=== PATIENT | male | born 1940 | race Caucasian/White ===

== ENCOUNTER 2017-06-03 07:26 | Outpatient (CLI) | payer MEDICARE ==
[~2017-06-03] VITALS: Ht 177.8 cm; Wt 100.0 kg
--- NOTE | ~2017-06-03 | HEMODYNAMI ---
PATIENT:ETHAN GRAFF MEDICAL RECORD: [id number] : 40 LOCATION:D.CAT ADMISSION DATE: 06/03/17 Generatedon:06/03/201710:38 Patient name: ETHAN GRAFF Patient #: [id number] : 1940 Date of study: 06/03/2017 Page: Of Hemodynamic Procedure Report Patient Data Patient Demographics Procedure consent was obtained First Name: ETHAN Gender: Female Last Name: PRERNA : 1940 Patient #: [id number] Age: 77 year(s) Race: SSN: [id number] Additional ID: [id number] Contact details [address]: [address] [place] [address] State: [place] City: [place] Zip code: [address] Past Medical History Allergies Allergen Reaction Date Comments Reported Other allergy 06/03/2017 milk Admission Admission Data Admission Date: 06/03/2017 Admission Time: 7:26 Arrival Date: 06/02/2017 Arrival Time: 1:20 Admit Source: Other Insurance Payor: Medicare Height (in.): 70 BSA: 2.19 (m2) Height (cm.): 177.8 BMI: 32.28 (kg/m2) Weight (lbs.): 225 Weight (kg.): 102.06 Lab Results Lab Result Date: 06/03/2017 Lab Result Time: 0:00 Biochemistry Name Units Result Min Max BUN mg/dl 18 --(---*)-- 7 18 Creatinine mg/dl 1 --(--*-)-- 0.6 1.3 CBC Name Units Result Min Max Hemoglobin g/dl 14.1 --(*---)-- 13.5 17.5 Procedure Procedure Types Cath Procedure Diagnostic Procedure [facility] w/Coronaries PCI Procedure Coronary Stent Initial Miscellaneous Procedures Moderate Sedation up to 15 minutes Procedure Description Procedure Date Procedure Date: 06/03/2017 Procedure Start Time: 10:18 Procedure End Time: 10:36 Procedure Staff Name Function Flex Miramontes MD Performing Physician Shahrzad Kauffman RT Scrub Ede Limon RN Nurse Laura Lam RT Monitor Indication Angina Procedure Data Cath Procedure Fluoroscopy Diagnostic fluoroscopy Total fluoroscopy Time: 6.2 time: 6.2 min min Diagnostic fluoroscopy Total fluoroscopy dose: dose: 1195 mGy 1195 mGy Contrast Material Contrast Material Type Amount (ml) Isovue 300 119 Entry Location Entry Primary Successful Side Size Upsize Upsize Entry Closure Watson ccessful Closure Location (Fr) 1 (Fr) 2 (Fr) Remarks Device Remarks Radial Right 6 Fr Mechanical artery Short Compression Estimated blood loss: 5 ml Diagnostic catheters Device Type Used For End Catheter Placement Diagnostic Terumo Multi-vessel Optitorque 5Fr Appleton 4.5 Angiography catheter Procedure Complications No complications Procedure Medications Medication Administration Route Dosage Oxygen NC 2 l/min Lidocaine 2% added to field 20 Heparin Flush Bag added to field 2 bags (1000units/500ml NS) 0.9% NaCl I.V. 100 ml/hr Versed I.V. 1 mg Fentanyl I.V. 50 mcg Radial Cocktail I.A. 1 syringe (Verapomil 2mg/Nitro 400mcg/Heparin 1500units) Versed I.V. 1 mg Fentanyl I.V. 50 mcg Heparin Bolus I.V. 4000 units Hemodynamics Rest BSA: 2.19 (m2) HGB: 14.1 (g/dl) O2 Consumption: Estimated: 190.75 (ml/min) O2 Co nsumption indexed: Estimated:87.1 (ml/min/m) Heart Rate: 61 (bpm) Snapshots Pre Cath Intra NCS Post Cath Vital Signs Time Heart Resp SPO2 NIBP (mmHg) Rhythm Pain Sedation Rate (ipm) (%) Status Level (bpm) 10:02:35 61 16 96 134/76(103) NSR 0 (11) 10(A) , No pain 10:06:51 60 14 95 127/75(101) NSR 0 (11) 10(A) , No pain 10:11:07 62 15 94 121/70(98) NSR 0 (11) 10(A) , No pain 10:15:23 59 16 94 128/71(98) NSR 0 (11) 10(A) , No pain 10:19:41 59 15 94 126/72(94) NSR 0 (11) 9(A) , No pain 10:23:59 68 15 94 121/62(99) NSR 0 (11) 9(A) , No pain 10:28:15 69 15 94 117/66(93) NSR 0 (11) 9(A) , No pain 10:32:31 67 16 94 126/70(102) NSR 0 (11) 10(A) , No pain 10:36:49 64 11 95 133/74(105) NSR 0 (11) 10(A) , No pain Medications Time Medication Route Dose Verified Delivered Reason Note s Effectiveness by by 9:56:11 Oxygen NC 2 l/min Flex Buffie used for Kulwinder Limon RN procedure 9:56:19 Lidocaine 2% added 20ml Flexevans Mccord for local to vial Kulwinder Miramontes MD anesthetic field 9:56:25 Heparin Flush added 2 bags Flex Mccord used for Bag to Kulwinder Miramontes MD procedure (1000units/500ml field NS) 9:56:34 0.9% NaCl I.V. 100 Flex Mera Per physician ml/hr Kulwinder Limon RN 10:16:46 Versed I.V. 1 mg Flex Mera for sedation Kulwinder Limon RN 10:16:52 Fentanyl I.V. 50 mcg Flex Mera for sedation Kulwinder Limon RN 10:21:27 Radial Cocktail I.A. 1 Flex Mccord for (Verapomil syringe Kulwinder Miramontes MD vasodilation 2mg/Nitro 400mcg/Heparin 1500units) 10:21:32 Versed I.V. 1 mg Flex Mera for sedation Kulwinder Limon RN 10:21:36 Fentanyl I.V. 50 mcg Flex Mera for sedation Kulwinder Limon RN 10:24:44 Heparin Bolus I.V. 4000 Flex Mera for veri fied units Kulwinder Limon RN anticoagulation with dr miramontes Procedure Log Time Note 9:30:13 Laura Lam RT(R) sent for patient. Start room use. 9:36:49 Informed consent obtained and on chart 9:36:57 Diagnostic Cath Status : Elective 9:37:21 Indication : Angina 9:37:52 Patient Height : 177.8 cm 9:37:55 Patient Weight : 102.06 kg 9:37:55 Admit Source: Other 9:37:59 Arrival Date: 06/02/2017 1:20:00 AM 9:38:14 Insurance Payor : Medicare 9:39:14 Patient allergic to Other allergymilk 9:41:09 Lab Result : Hemoglobin 14.1 g/dl 9:: Lab Result : BUN 18 mg/dl 9::09 Lab Result : Creatinine 1 mg/dl 9:42:20 Time tracking: Regular hours 9:42:24 Plan of Care:Hemodynamics will remain stable., Cardiac rhythm will remain stable., Comfort level will be maintained., Respiratory function will remain adequate., Patient/ family verbilizes understanding of procedure., Procedure tolerated without complication., Recovers from procedure without complications.. 9:47:33 Patient received from Pre/Post Procedure Room to [facility] 2 Alert and oriented. Tansferred to table in Supine position. 9:47:34 Warm blankets applied, and rebecca hugger turned on for patient comfort. 9:47:35 Correct patient and procedure confirmed by team. 9:47:36 ECG and BP/O2 sat monitors applied to patient. 9:56:11 Oxygen 2 l/min NC was administered by Ede Limon RN; used for procedure; 9:56:19 Lidocaine 2% 20ml vial added to field was administered by Flex Miramontes MD; for local anesthetic; 9:56:25 Heparin Flush Bag (1000units/500ml NS) 2 bags added to field was administered by Flex Miramontes MD; used for procedure; 9:56:34 0.9% NaCl 100 ml/hr I.V. was administered by Ede Limon RN; Per physician; 10:01:23 Vital chart was started 10:01:25 Baseline sample Acquired. 10:01:30 Rhythm: sinus rhythm 10:01:32 Full Disclosure recording started 10:01:41 H&P Date Dictated: 06/02/2017 Within 30 days and on chart., H&P Addendum completed by physician on day of procedure. (MUST COMPLETE FOR ALL OUTPATIENTS). 10:01:42 Pre-procedure instructions explained to patient. 10:01:43 Pre-op teaching completed and patient verbalized understanding. 10:01:44 Family in waiting room. 10:01:45 Patient NPO since Midnight. 10:01:54 Is the patient allergic to Iodine/contrast media? No. 10:01:55 Was the patient premedicated? No 10:01:56 Is patient on blood thinner?Yes 10:01:59 ACC The patient was administered the following blood thiners within the last 24 hours: ACCPlavix 10:02:03 Patient diabetic? Yes. 10:02:07 If diabetic: On Metformin? Yes 10:02:11 If on Metformin: Last Dose? 06/03/2017 10:02:15 Previous problem with sedation/anesthesia? No ? 10:02:18 Snore? Yes 10:02:19 Sleep apnea? No 10:02:20 Deviated septum? No 10:02:21 Opens mouth fully? Yes 10:02:22 Sticks out tongue? Yes 10:02:23 Airway obstruction? No ? 10:02:27 Dentures? No ? 10:02:31 Pre procedure: right dorsailis pedis pulse 1+ Palpable, but thready & weak; easily obliterated 10:02:34 Modified Avelino's test Radial < 7 seconds 10:02:36 Patient pain scale 0/10 ?. 10:02:47 IV patent on arrival in left hand with 0.9% NaCl at [facility]. 10:03:03 Lab results completed and on chart. 10:03:11 Right Radial & Right Groin area was prepped with chlora-prep and draped in sterile fashion 10:03:12 Alarms reviewed by R. N. 10:03:13 Sharps counted by scrub and verified by R.N. 10:03:36 Physician paged 10:11:21 Use device set Radial Dx 10:11:22 Acist Syringe opened to sterile field. 10:11:22 Medline Cath Pack opened to sterile field. 10:11:22 Bag Decanter opened to sterile field. 10:11:23 Terumo 6Fr Slender Glidesheath opened to sterile field. 10:11:23 St Amaury 260cm J .035 wire opened to sterile field. 10:11:23 Acist Hand Control opened to sterile field. 10:11:24 Acist Manifold opened to sterile field. 10:11:24 Tegaderm 4 x 4 opened to sterile field. 10:11:25 MBrace Wrist Support opened to sterile field. 10:16:05 Physician arrived 10:16:06 --------ALL STOP TIME OUT------ 10:16:07 Final Timeout: patient, procedure, and site verified with staff and physician. All members of the team are in agreement. 10:16:09 Right Radial & Right Groin site verified by team. 10:16:12 Physical assessment completed. ASA score P 2 - A patient with mild systemic disease as per Flex Miramontes MD. 10:16:15 Sedation plan: IV Moderate Sedation Versed, Fentanyl 10:16:46 Versed 1 mg I.V. was administered by Ede Limon RN; for sedation; 10:16:52 Fentanyl 50 mcg I.V. was administered by Ede Limon RN; for sedation; 10:18:10 Procedure started. 10:18:12 Zero performed for pressure channel P1 10:18:18 Zero performed for pressure channel P1 10:18:31 Local anesthetic to right radial artery with Lidocaine 2% by Flex Miramontes MD.INITIAL ACCESS ONLY 10:18:40 A 6 Fr Short sheath was inserted into the Right Radial artery 10:21:17 A Diagnostic [employer] Optitorque 5Fr Appleton 4.5 catheter was advanced over the wire and used for Multi-vessel Angiography. 10:21:27 Radial Cocktail (Verapomil 2mg/Nitro 400mcg/Heparin 1500units) 1 syringe I.A. was administered by Flex Miramontes MD; for vasodilation; 10:21:32 Versed 1 mg I.V. was administered by Ede Limon RN; for sedation; 10:21:36 Fentanyl 50 mcg I.V. was administered by Ede Limon RN; for sedation; 10:22:03 EF : 50 % 10:22:08 LV gram done using LEE 10:22:10 Injector settings: Ml/sec: 5, Volume: 15, 10:22:18 LCA angiography performed. 10::28 Injector settings: Ml/sec: 3, Volume: 6, 10:23:25 Merit BasixCompak Inflation Kit opened to sterile field. 10:23:25 Rivera Whisper J 300cm 0.014 guide wire opened to sterile field. 10:24:03 RCA angiography performed. 10::44 Heparin Bolus 4000 units I.V. was administered by Ede Limon RN; for anticoagulation; verified with dr miramontes 10::44 Injector settings: Ml/sec: 3, Volume: 6, 10:24:57 Catheter removed. 10:25:03 Proceeding to intervention. 10:25:22 Cordis 6FR XBLAD 4.0 guide catheter opened to sterile field. 10:25:30 6 Fr xblad 4 guide catheter was inserted over the wire 10:26:35 Guide Catheter removed. unable to cannulate vessel. 10:26:49 Cordis 6FR XBLAD 3.5 guide catheter opened to sterile field. 10:27:01 6 Fr xblad 3.5 guide catheter was inserted over the wire 10:27:05 whisper wire advanced. 10:30:10 Inflation number: 1 A Mozec Rx 2.5 x 41 balloon was prepped and advanced across the Mid LAD, then inflated to 13 JOHANNA for 0:10 (min:sec). 10:30:24 Inflation number: 2 The Mozec Rx 2.5 x 41 balloon was reinflated across the Mid LAD, to 17 JOHANNA for 0:10 (min:sec). 10:31:17 Balloon removed over the wire. 10:32:40 Inflation Number: 3 A Homeworth OTW 2.5 x 38 stent was prepped and advanced across the Mid LAD. The stent was deployed at 11 JOHANNA for 0:10 (min:sec). 10:32:48 Inflation number: 4 The stent balloon was then re-inflated across the Mid LAD to 17 JOHANNA for 0:10 (min:sec). 10:33:33 Stent catheter was removed intact over wire. 10:33:38 Wire removed. 10:33:39 Guide catheter removed. 10:34:27 Terumo TR Band Standard opened to sterile field. 10:34:38 Sheath removed intact; hemostasis achieved with Mechanical Compression to the Right Radial artery. 10:34:40 Procedure ended.(Physican Out) 10:34:55 Fluoroscopy time 06.20 minutes. 10:35:08 Fluoroscopy dose: 1195 mGy 10:35:08 Flurop Dose total: 1195 10:35:13 Contrast amount:Isovue 300 119ml. 10:35:20 Sharps counted by scrub and verified by R.N. 10:35:57 TR band inflated with 10cc of air. 10:35:59 Insertion/operative site no bleeding no hematoma. 10:36:03 Post right radial artery:stable 10:36:05 Post Procedure Pulses reassessed and unchanged 10:36:07 Post procedure rhythm: unchanged. 10:36:09 Estimated blood loss: 5 ml 10:36:10 Post procedure instruction explained to patient.Patient verbalizes understanding. 10:36:11 Patient needs reinforcement of post procedure teaching. 10:36:27 Procedure type changed to Cath procedure, Diagnostic procedure, LHC, LHC w/Coronaries, PCI procedure, Coronary Stent Initial, Miscellaneous Procedures, Moderate Sedation up to 15 minutes 10:36:28 Procedure and supply charges have been captured, reviewed, submitted and are correct. 10:36:32 Procedure Complication : No complications 10:36:35 Vital chart was stopped 10:36:35 See physician's report for complete and final results. 10:36:37 Report given to Pre/Post Procedure Room. 10:36:40 Patient transfered to Pre/Post Procedure Room with Stretcher. 10:36:41 Procedure ended. 10:36:41 Full Disclosure recording stopped 10:36:48 ACC-PCI Only Patient was given prescriptions, or instructed by Flex Miramontes MD to start/continue the following medications upon discharge: Plavix 10:36:50 End room use (Document Last) Intervention Summary Intervention Notes Time ActionType Lesion and Equipment Action# Pressure Duration Attributes Used 10:30:10 Inflate Mid LAD Mozec Rx 1 13 00:10 balloon 2.5 x 41 balloon 10:30:24 Reinflate Mid LAD Mozec Rx 2 17 00:10 balloon 2.5 x 41 balloon 10:32:40 [address] stent Mid LAD Homeworth OTW 3 11 00:10 2.5 x 38 stent 10:32:48 Reinflate Mid LAD Homeworth OTW 4 17 00:10 stent 2.5 x 38 balloon stent Device Usage Item Name Manufacture Quantity Catalog Hospital Part Current Minimal Lot# / Number Charge Number Stock Stock Serial# Code [facility] 1 [id number] 253522 642781 219413 20 Apps[employer]Pro [employer] Inc Medline Cardinal 1 [id number] 553070 36303 208011 5 Cath Pack Health Bag Microtek 1 2001S 563318 89224 768567 5 [employer] Terumo 6Fr Terumo 1 [id number] 115626 042000 126964 [address] Ama[address] St Amaury 1 372522 368500 882511 170503 30 260cm J .035 wire Acist Hand Acist 1 17198 669473 090041 839332 5 Control Medical Systems Inc Acist Acist 1 30203 579943 987612 242878 5 Manifold Medical Systems Inc Tegaderm 4 3M 1 1626W 455170 099421 740837 5 x 4 MBrace Advanced 1 140-0250-00 371054 81826 444297 5 Wrist Vascular Support Dynamics Diagnostic Terumo 1 40-5782 211976 480802 778852 5 Terumo Optitorque 5Fr Appleton 4.5 catheter Merit Merit 1 [id number] 218272 921366 209700 15 BasixCompak Medical Inflation Kit Rivera Rivera 1 [id number] 468806 531134 414675 5 Whisper J Vascular 300cm 0.014 guide wire Cordis 6FR Cardinal 1 [id number] 050872 144609 381072 3 XBLAD 4.0 Health guide catheter Cordis 6FR Cardinal 1 [id number] 535180 681213 300628 10 XBLAD 3.5 Health guide catheter Mozec Rx Cardinal 1 [id number] 428090 06560 253986 5 UMOA42 2.5 x 41 Health balloon Milan OTW Medtronic 1 [id number] 666278 97460 760142 5 [id number] 2.5 x 38 stent Terumo TR Terumo 1 [id number] 790784 899315 064470 40 Band Standard Signature Audit [place] Stage Time Signature Unsigned Intra-Procedure 06/03/2017 Shahrzad Kauffman 10:38:26 AM RT(R) Signatures Monitor : Laura Lam Signature : RT Date : Time : [facility] [address] [place] [address]
[2017-06-03] MEDS ORDERED: HUMALOG 30100 UNITS/ SC (07:52)
[2017-06-03] MEDS ORDERED: NORVASC10 MG PO (07:52)
[2017-06-03] MEDS ORDERED: TOUJEO SOL300 UNIT/1 (07:53)
[2017-06-03] MEDS ORDERED: GLUCOPHAGE1000 MG PO (07:53)
[2017-06-03] MEDS ORDERED: FLOMAX0.4 MG PO (07:54)
[2017-06-03] MEDS ORDERED: PROTONIX20 MG PO (07:54)
[2017-06-03] MEDS ORDERED: ZANTAC150 MG (07:54)
[2017-06-03] MEDS ORDERED: LOPID600 MG PO (07:55)
[2017-06-03] MEDS ORDERED: NITROSTAT0.4 MG SL (07:56)
[2017-06-03] MEDS ORDERED: GLUCOTROL 5 MG T5 MG PO (07:56)
[2017-06-03] MEDS ORDERED: PLAVIX75 MG PO (07:57)
[2017-06-03] MEDS ORDERED: DIOVAN HCT 160/1 TA1 PO (07:57)
[2017-06-03] MEDS ORDERED: METOPROLOL TART50 MG PO (07:57)
[2017-06-03] MEDS ORDERED: BAYER CHEWABLE81 MG PO (07:58)
[2017-06-03] MEDS ORDERED: CLOTRIM ANTIFUN15 GM TOPICAL (07:58)
[2017-06-03] MEDS ORDERED: GAVISCON E1 TAB.CHEW PO (07:58)
[2017-06-03 08:00] VITALS: BP 157/75; Ht 177.8 cm; Wt 100.0 kg
[2017-06-03 08:09] LABS: EOSINOPHILS 4.1 % (0-7); HEMATOCRIT 40.9 % (36.0-48.0); HEMOGLOBIN 14.1 g/dL (12-16); IMMATURE GRANULOCYTES 0.2 % (0-5); LYMPHOCYTES 27.5 % (15-50); MCH 30.7 pg (26.0-34.0); MCHC 34.5 g/dL (31.0-37.0); MCV 89.1 fL (80.0-100.0); MONOCYTES 7.9 % (2-11); NEUTROPHILS 59.3 % (40-80); PLATELET COUNT 200 10x3/uL (130-400); RBC 4.59 10x6/uL (4.00-5.40); RDW 13.4 % (11.5-14.5); WBC 5.8 10x3/uL (4.8-10.8)
[2017-06-03 08:14] LABS: ANION GAP 11.6 mmol/L (8-16); CALCIUM 9.1 mg/dL (8.5-10.1); CARBON DIOXIDE 28.6 mmol/L (21.0-32.0); POTASSIUM - SERUM 4.2 mmol/L (3.5-5.1)
--- NOTE | 2017-06-03 11:00 | NUR ---
ROOM AIR, NO RESP DISTRESS NOTED. RIGHT WRIST TR BAND CDI, NO BLEEDING OR HEMATOMA NOTED. NO C/O NAUSEA OR CHEST PAIN. VSS. SANDWICH TRAY AND DRINK GIVEN. AT BEDSIDE, CALL LIGHT WITHIN REACH.
--- NOTE | 2017-06-03 11:30 | NUR ---
RESTING QUIETLY IN BED. RIGHT WRIST TR BAND CDI, NO BLEEDING OR HEMATOMA NOTED. NO C/O NAUSEA OR CHEST PAIN. VSS. ROOM AIR, NO RESP DISTRESS. AT BEDSIDE, WILL CONTINUE TO MONITOR.
--- NOTE | 2017-06-03 11:45 | NUR ---
ROOM AIR, NO RESP DISTRESS NOTED. RIGHT WRIST TR BAND CDI, NO BLEEDING OR HEMATOMA NOTED. DENIES ANY NEEDS AT THIS TIME. VSS. CALL LIGHT WITHIN REACH.
--- NOTE | 2017-06-03 12:15 | NUR ---
RESTING QUIETLY. ROOM AIR, NO RESP DISTRESS. RIGHT WRIST TR BAND CDI, NO BLEEDING NOTED. VSS. NO C/O PAIN. WILL CONTINUE TO MONITOR.
[2017-06-03 12:34] LABS: CREATINE KINASE 90 UL (21-215); TROPONIN-I 0.018 ng/mL (0.000-0.060)
--- NOTE | 2017-06-03 12:45 | NUR ---
RESTING QUIETLY ON ROOM AIR, NO RESP DISTRESS. VSS. RIGHT WRIST TR BAND CDI, NO BLEEDING NOTED. WILL CONTINUE TO MONITOR.
--- NOTE | 2017-06-03 13:21 | NUR ---
2CC OF AIR REMOVED FROM TR BAND, NO BLEEDING NOTED.
--- NOTE | 2017-06-03 13:39 | NUR ---
3CC OF AIR REMOVED FROM TR BAND, NO BLEEDING NOTED.
--- NOTE | 2017-06-03 13:52 | NUR ---
2CC AIR REMOVED FROM R WRIST TR BAND, NO BLEEDING OR HEMATOMA. WILL MONITOR CLOSELY.
--- NOTE | 2017-06-03 14:20 | NUR ---
LEFT HAND PIV D/C'D WITH CATHETER INTACT, BAND AID TO SITE. UP TO BEDSIDE TO GET DRESSED.
--- NOTE | 2017-06-03 14:30 | NUR ---
REMAINING AIR REMOVED FROM TR BAND AND DRESSING PLACED TO SITE. DISCHARGE INSTRUCTIONS GIVEN, VERBALIZED UNDERSTANDING.
--- NOTE | 2017-06-03 14:50 | NUR ---
TAKEN OUT VIA WHEELCHAIR BY CATH FORECLOSURE CLERK. LEFT FACILITY WITH FAMILY MEMBER AND ALL PERSONAL BELONGINGS.
--- NOTE | 2017-06-05 13:34 | OP ---
PATIENT NAME: ETHAN GRAFF MEDICAL RECORD: [id number] :40 LOCATION:D.CAT ADMISSION DATE: SURGEON: SAKSHI VELASCO MD DATE OF OPERATION: 06/03/2017 PROCEDURES: 1. PTCA stent LAD. 2. Left heart catheterization. 3. Selective coronary angiography. 4. Left ventriculogram. INDICATION: Angina and coronary artery disease. PROCEDURE IN DETAIL: After informed consent was obtained and after detailed explanation of risks, benefits as well as alternative therapies, the patient elected to proceed with angiogram and angioplasty. The right radial area was prepped and draped in normal sterile fashion. The right radial artery was cannulated via modified Seldinger technique with placement of 6-Moldovan sheath. All catheters exchanged through this sheath. FINDINGS: Left ventriculogram was performed in standard 30-degree LEE view, reveals good cardiac wall motion throughout all segments. Overall ejection fraction estimated at 60%. SELECTIVE CORONARY ANGIOGRAPHY: 1. Left main showed no significant angiographic disease. 2. Left anterior descending has previously placed stents with 90%-95% in-stent restenosis. 3. Left circumflex has moderate irregularities, but no flow-limiting stenosis. 4. Right coronary has moderate irregularities, but no flow-limiting stenosis. PTCA STENT OF THE LAD: The stent used was a 2.5 x 38 mm [place]. Result was 0% residual stenosis. OVERALL IMPRESSION: Successful percutaneous transluminal coronary angioplasty stent of the left anterior descending going from 90% in-stent restenosis to 0% residual stenosis. TRANSINT:[id number] Voice Confirmation ID: [id number] DOCUMENT ID: [id number] SAKSHI VELASCO MD at 1334 CC: [id number] DICTATION DATE: 06/03/17 1038 SHIPPING AND RECEIVING: 06/03/17 [address] [facility] CLI 06/03/17 [place] [address]
== END 2017-06-03 14:50 | disposition home or self-care (01) ==
LOC: D.CATH 07:26 → EDSEX 07:26 → D.CATH 09:30
PROVIDERS: Internal Medicine Interventional Cardiology
DX: I25.119 Atherosclerotic heart disease of native coronary artery with unspecified angina pectoris (principal); T82.855A Stenosis of coronary artery stent, initial encounter; Z01.812 Encounter for preprocedural laboratory examination

== ENCOUNTER → 2018-01-08 09:22 | Outpatient (CLI) | payer MEDICARE ==
[2017-06-03 08:00] VITALS: BMI 31.6
[~2018-01-08 09:22] MED LIST: BAYER CHEWABLE81 MG PO; CLOTRIM ANTIFUN15 GM TOPICAL; DIOVAN HCT 160/1 TA1 PO; FLOMAX0.4 MG PO; GAVISCON E1 TAB.CHEW PO; GLUCOPHAGE1000 MG PO; GLUCOTROL 5 MG T5 MG PO; HUMALOG 30100 UNITS/ SC; LOPID600 MG PO; METOPROLOL TART50 MG PO; NITROSTAT0.4 MG SL; NORVASC10 MG PO; PLAVIX75 MG PO; PROTONIX20 MG PO; TOUJEO SOL300 UNIT/1; ZANTAC150 MG
== END | disposition home or self-care (01) ==
LOC: D.RT 09:22
DX: R06.09 Other forms of dyspnea (principal)

== ENCOUNTER 2018-06-04 14:40 | Observation (INO) | payer MEDICARE ==
[~2018-06-04] VITALS: Ht 180.3 cm; Wt 97.9 kg
--- NOTE | ~2018-06-04 | EC ---
PATIENT:ETHAN GRAFF DATE OF SERVICE: 06/04/18 SEX: M MEDICAL RECORD: [id number] DATE OF : 40 LOCATION:D.M2 D.212 AGE OF PATIENT: 78 ADMISSION DATE: 06/04/18 REFERRING PHYSICIAN: INTERPRETING PHYSICIAN: SOLITARIO ROMAN MD ECHOCARDIOGRAM REPORT ECHO CHARGES 4 ECHO COMPLETE Date: 06/05 CLINICAL DIAGNOSIS: BRADYCARDIA ECHOCARDIOGRAPHIC MEASUREMENTS (adult normal given) AC root (d.<3.7cm) 2.5 cm LV Septum d (<1.2 cm> 1.2 cm Valve Excursion 0.7 cm LV Septum (systole) 1.3 cm Left Atria (s.<4.0cm> 4.7 cm LVPW d(<1.2cm) 1.2 cm RV (d.<2.3cm) 2.8 cm LVPW (sytole) 1.3 cm LV diastole(<5.6CM) 5.5 cm MV E-F(>70mm/sec) cm LV systole 4.6 cm LVOT Diameter 1.7 cm MV exc.(>10mm) cm Est.ejection fraction (50-75%) % DOPPLER: LVIT cm/sec A cm/sec E 69 cm/sec LA cm/sec RVSP 49.4 mmHg LVOT 111 cm/sec AOP1/2T m/s Asc. Ao 114 cm/sec RVOT 87 cm/sec RA cm/sec PA 114 cm/sec AV Gradient Peak 23.2 mmHg AV Mean 15.1 mmHg AV Area 1.2 cm MV Gradient Peak 6.0 mmHg MV Mean 2.1 mmHg MV Area cm COMMENTS: Field Service Engineer: Shobha EM Vice President Of Communications: James Roman TAPE# PACS Pericardial Effusion N DATE OF SERVICE: INDICATION: History of a bovine aortic valve replacement. PROCEDURE: Transthoracic echocardiogram. FINDINGS: 1. Left ventricle has mild concentric left ventricular hypertrophy. Inflow characteristics consistent with diastolic dysfunction. Ejection fraction is 50% to 55%. There are no obvious regional wall motion abnormalities. ECHOCARDIOGRAM REPORT [id number] ETHAN GRAFF 2. The aortic valve by Doppler measurements has normal structure and function. There is no evidence of significant regurgitation or stenosis. 3. The mitral valve is grossly normal. Hard to visualize with mild mitral regurgitation. 4. The tricuspid valve has chzm-br-xahrmjei tricuspid regurgitation. RVSP of 49 mmHg. 5. The right ventricle appears to be mildly dilated with right ventricular hypertrophy. 6. The interatrial septum appears to be thinned. 7. The pulmonic valve has mild pulmonic insufficiency. CONCLUSIONS: The patient has evidence of hypertensive heart disease with a replaced bovine aortic valve that has normal function. TRANSINT:[id number] Voice Confirmation ID: [id number] DOCUMENT ID: [id number] SOLITARIO ROMAN MD at 0749 CC: [id number] DICTATION DATE: 06/06/182224 COURT COMMISSIONER: 06/07/18 0530 DIS IN 06/05/18 [facility] [address] [place] [address]
[2018-06-04] MEDS ORDERED: BETAPACE 120 M120 MG PO (15:10)
[2018-06-04] MEDS ORDERED: LASIX20 MG PO (15:11)
[2018-06-04] MEDS ORDERED: KLOR-CON 1010 MEQ PO (15:12)
[2018-06-04] MEDS ORDERED: COZAAR100 MG PO (15:13)
[2018-06-04] MEDS ORDERED: LIPITOR20 MG PO (15:13)
[2018-06-04] MEDS ORDERED: COUMADIN2.5 MG PO (15:13)
[2018-06-04] MEDS ORDERED: CARDIZEM CD360 MG PO (15:14)
[2018-06-04] MEDS ORDERED: LIPITOR10 MG PO (15:16)
[2018-06-04 18:35] VITALS: BP 145/85
[2018-06-04 21:58] LABS: BASOPHILS 0.6 % (0-2); EOSINOPHILS 1.1 % (0-7); HEMATOCRIT 36.5 % (42.0-54.0); HEMOGLOBIN 11.7 g/dL (13.5-17.5); IMMATURE GRANULOCYTES 0.3 % (0-5); LYMPHOCYTES 14.9 % (15-50); MCH 26.8 pg (26.0-34.0); MCHC 32.1 g/dL (31.0-37.0); MCV 83.5 fL (80.0-100.0); MEAN PLATELET VOLUME 9.3 fL (7.4-10.4); MONOCYTES 4.2 % (2-11); NEUTROPHILS 78.9 % (40-80); PLATELET COUNT 186 10x3/uL (130-400); RBC 4.37 10x6/uL (4.20-6.10); WBC 9.9 10x3/uL (4.8-10.8)
[2018-06-04 22:26] LABS: CKMB 0.7 U/L (0.0-3.6); CREATINE KINASE 35 UL (21-232); TROPONIN-I < 0.017 ng/mL (0.000-0.060)
[2018-06-04 23:02] VITALS: BP 110/53; Ht 180.3 cm; Wt 97.9 kg
[2018-06-05] VITALS: BP 110/53
[2018-06-05 03:22] LABS: BASOPHILS 0.3 % (0-2); EOSINOPHILS 0.5 % (0-7); HEMATOCRIT 34.7 % (42.0-54.0); HEMOGLOBIN 11.1 g/dL (13.5-17.5); IMMATURE GRANULOCYTES 0.3 % (0-5); LYMPHOCYTES 21.9 % (15-50); MCH 26.6 pg (26.0-34.0); MCV 83.2 fL (80.0-100.0); MEAN PLATELET VOLUME 9.6 fL (7.4-10.4); MONOCYTES 6.7 % (2-11); NEUTROPHILS 70.3 % (40-80); PLATELET COUNT 180 10x3/uL (130-400); RBC 4.17 10x6/uL (4.20-6.10)
[2018-06-05 03:50] LABS: ALBUMIN 3.3 g/dL (3.4-5.0); ALKALINE PHOSPHATASE 56 U/L (46-116); ALT (SGPT) 26 U/L (10-68); CALC OSMOLALITY 284 mosm/kg (275-300); CALCIUM 8.5 mg/dL (8.5-10.1); CARBON DIOXIDE 22.2 mmol/L (21.0-32.0); CHLORIDE - SERUM 102 mmol/L (98-107); CKMB 0.8 U/L (0.0-3.6); CREATINE KINASE 37 UL (21-232); CREATININE - SERUM 1.7 mg/dL (0.6-1.3); GLUCOSE 194 mg/dL (74-106); POTASSIUM - SERUM 4.6 mmol/L (3.5-5.1); SODIUM 136 mmol/L (136-145); TROPONIN-I < 0.017 ng/mL (0.000-0.060); UREA NITROGEN 35 mg/dL (7-18); eGFR NON AFRICAN AMERICAN 42 mL/min (90-120)
[2018-06-05 04:00] VITALS: BP 132/61
[2018-06-05 09:15] VITALS: BP 139/69
[2018-06-05 10:39] LABS: CKMB 0.7 U/L (0.0-3.6); CREATINE KINASE 43 UL (21-232)
[2018-06-05 10:40] LABS: TROPONIN-I < 0.017 ng/mL (0.000-0.060)
== END 2018-06-05 16:29 | disposition home or self-care (01) ==
LOC: D.ER 14:40 → D.M2 21:50 → OBSVTIME 21:55 → D.M2 06-05 16:29
PROVIDERS: Family Medicine
DX: R00.1 Bradycardia, unspecified (principal); T50.995A Adverse effect of other drugs, medicaments and biological substances, initial encounter; Y92.9 Unspecified place or not applicable; E11.40 Type 2 diabetes mellitus with diabetic neuropathy, unspecified; Z87.891 Personal history of nicotine dependence